=== PATIENT | female | born 1990 | race Caucasian/White ===

== ENCOUNTER 2017-09-04 13:52 | Day surgery (SDC) | payer OTHER, SELFPAY ==
[2017-08-30 13:11] VITALS: BMI 29.6
--- NOTE | 2017-09-04 | PATH_ITS ---
[facility] Accession Number: [id number] . 01 Material submitted: . ENDOMETRIAL CURETTINGS . 02 Diagnosis: Endometrium, Curettage: Secretory endometrium with no diagnostic abnormality. Negative for atypical hyperplasia or malignancy. [facility]/09/06/2017 . 02 Electronically signed: . Dandre Keith MD, PhD, Pathologist NPI- [id number] . 01 Gross description: . ENDOMETRIAL CURETTINGS: Received in formalin are minute fragments of mucoid and hemorrhagic material measuring 2.5 x 3.8 x 0.4 cm in aggregate. Submitted in toto in 2 cassettes. /CKI /CKI . 02 Pathologist provided ICD-10: N93.8 . 02 CPT . 722288 Performed at: 01 [facility] [address] [id number] MD Dario Hodge MD Phone: [phone] Performed at: 02 [facility] [address] [place], [place] [id number] MD Won Ramos MD Phone: [phone]
[2017-09-04 14:21] VITALS: BP 115/76; PULSE 69; RESP 16; TEMP 36.5; O2SAT 99; BMI 29.6
[2017-09-04] MEDS: LACTATED RINGERS 1,000 ML 100 ML IV (14:25)
[2017-09-04] MEDS: CEFAZOLIN 2 GM/100 ML FROZ.PIGGY IV (15:00)
--- NOTE | 2017-09-04 15:02 | PM.PREOP ---
Pre-operative Note Interval Note Pre-op Check: Yes History & Physical Reviewed by Physician Changes: No
--- NOTE | 2017-09-04 15:25 | SUR.OPER ---
Lithotomy on padded OR bed, head on pillow, arms secured on padded arm boards at <90 degrees abduction. Legs secured in padded yellow fins stirrups.
[2017-09-04] MEDS: BUPIVACAINE 0.5% W/ EPI (PF) VIAL 30 ML INJ (15:30)
[2017-09-04 15:55] VITALS: BP 124/81; PULSE 79; RESP 17; TEMP 35.7; O2SAT 99
[2017-09-04 16:00] VITALS: BP 117/78; PULSE 75; RESP 17; O2SAT 99
--- NOTE | 2017-09-04 16:04 | PM.GYNOP.1 ---
Operative Date/Time/Diagnoses Date of procedure: 09/04/17 Time of procedure: 15:30 Pre-op diagnosis: Abnormal uterine bleeding Post-op diagnosis: same Procedure: Procedures Operation Date: 09/04/17 15:15 Actual Procedures Side Surgeon p Hysteroscopy D&C, Endometrial Ablation Ellen Edwards MD Indications: The patient is a 26-year-old 0 female here for hysteroscopy, dilation and curettage, and endometrial ablation for management of longstanding menorrhagia. She has a history of heavy, painful periods since menarche and would like to pursue definitive management. She is in a same-sex marriage, and they have 1 child delivered by her . She is not planning to ever bear children. She has tried hormonal contraception in the past (took a control pill in [facility]) and does not like the side effects. In particular, she gained a significant amount of weight and was very tran and uncomfortable. She has considered all her management options and desires ablation. Pelvic ultrasound was obtained and notable only for a possible small uterine fibroid. The ovaries were normal in appearance. The risks, benefits, limitations, alternatives, and expectations of surgery were discussed, and the consent was reviewed and signed prior to the date of surgery. Surgeon: Ellen Edwards Anesthesia Type: General and Local (0.5 arcaine with epi, 12 ml) Operative Notes Findings: Exam under anesthesia: Normal external female genitalia; bimanual exam notes a retroverted uterus measuring approximately 8 weeks in size; no adnexal masses palpable. Operative findings: Hysteroscopy noted visualization of bilateral tubal ostia. The endometrium was thickened; however, there were no discrete masses or polyps noted. The endometrial cavity length was measured to be 5.5 cm. The cavity width was measured to be about 4.3 cm. Endometrial ablation was performed to a power of 130 w for 72 sec. Visualization hysteroscopically after the ablation noted excellent cauterization throughout the endometrial cavity. Closure Type: not applicable Specimen(s): endometrial curettings Applied: device(s) (Novarsure endometrial ablation device) Estimated blood loss (mL): 4 Blood products transfused: none Procedure in detail: The patient was taken to the operating room where general anesthesia with LMA was administered without difficulty. She was then placed in the high dorsal lithotomy position with her lower extremities in Yellofin stirrups. Exam under anesthesia was then performed with the findings as noted above. Perineum and vagina were then prepped and draped in a sterile fashion, and in-and-out catheterization was performed. Procedure Time-Out was performed. A sterile bivalve speculum was then placed. The anterior lip of the cervix was then grasped with a single-toothed tenaculum. Local anesthetic using 0.5% Marcaine with epinephrine was then injected at the 12:00, 2:00, 4:00, 7:00, and 10:00 positions for a paracervical block. The cervix was then serially dilated until a 7 mm 30-degree hysteroscope could be gently advanced to the uterine fundus. Using sterile saline for distention, poor visualization was noted secondary to blood, and the hysteroscope was removed. Sharp curettage was then performed on all 4 benavides of the uterus. This tissue was sent for pathology. The hysteroscope was then reintroduced, and the uterine cavity was visualized with the findings as noted above. The NovaSure endometrial ablation device was then placed onto the sterile field. The endometrial cavity length was measured to be 5.5 cm. The NovaSure device was then inserted into the endometrium, and the array deployed. The endometrial cavity width was determined to be 4.3 cm. Carbon dioxide gas insufflation test was then performed without complication. Ablation was then performed for 72 sec to a power of 130 W. The array was then retracted, and the device removed from the endometrial cavity. The diagnostic hysteroscope was then replaced into the endometrial cavity, and visualization noted excellent cauterization throughout. The hysteroscope was then removed. The tenaculum was then removed, and the tenaculum sites hemostatic after application of silver nitrate. At this point, the procedure was deemed complete. Sponge, lap, and needle count were correct x3. There were no complications. The patient was then taken to the recovery room in stable condition. Complications: none Post-operative Condition: stable Disposition: same day surgery Plan for aftercare: D/C home. See discharge instructions.
[2017-09-04 16:05] VITALS: BP 120/84; PULSE 68; RESP 17; O2SAT 100
[2017-09-04] MEDS: MEPERIDINE 50 MG/ML IV (16:05)
[2017-09-04 16:34] VITALS: BP 113/80; PULSE 63; RESP 17; TEMP 36.4; O2SAT 100
== END 2017-09-04 16:36 | disposition home or self-care (01) ==
PROVIDERS: PCP Family Medicine; Visit Provider Obstetrics & Gynecology
PROC: 0U5B8ZZ Destruction of Endometrium, Via Natural or Artificial Opening Endoscopic (ICD-10-PCS; CPT 58563; principal; 2017-09-04 15:15)
DX: N93.9 Abnormal uterine and vaginal bleeding, unspecified (principal)
CPT/HCPCS: 58563; 88305; J0690; J1100; J1885; J2175; J2405; J2704; J3010